=== PATIENT | male | born 1955 | race Hispanic/Latino ===

== ENCOUNTER 2021-03-20 09:00 | Observation (INO) | payer OTHER ==
[~2021-03-20] VITALS: Ht 167.6 cm; Wt 88.0 kg
[2021-03-20 11:18] LABS: BASOPHILS % (AUTO) 0.9 % (0.0-5.0); EOSINOPHILS % (AUTO) 2.9 % (0.0-8.0); HEMATOCRIT 43.3 % (42-54); LYMPHOCYTES % (AUTO) 30.1 % (21.0-51.0); MEAN CORPUSCULAR HEMOGLOBIN 29.8 pg (27.0-33.0); MEAN CORPUSCULAR HGB CONC 33.3 g/dL (32.0-36.0); MEAN CORPUSCULAR VOLUME 89.6 fL (79-99); MONOCYTES % (AUTO) 9.2 % (3.0-13.0); NEUTROPHILS % (AUTO) 56.6 % (40.0-77.0); PLATELET COUNT (AUTO) 319 K/uL (130-400); RED BLOOD CELL COUNT(AUTO) 4.83 MIL/uL (4.50-6.20); RED CELL DISTRIBUTION WIDTH 13.4 % (11.0-15.5); WHITE BLOOD COUNT (AUTO) 10.3 K/uL (4.8-10.8)
[2021-03-20 12:57] LABS: POTASSIUM 3.9 mmol/L (3.5-5.1)
[2021-03-20 13:04] LABS: CREATININE 0.9 mg/dL (0.5-1.5)
[2021-03-20 14:01] VITALS: BP 125/84
[2021-03-20] MEDS ORDERED: LOSA100T58 PO (14:32)
[2021-03-20] MEDS ORDERED: AEC81 PO (14:32)
[2021-03-20] MEDS ORDERED: AMLO-257 PO (14:32)
[2021-03-20] MEDS ORDERED: ATOR40TA71 PO (14:32)
[2021-03-20] MEDS ORDERED: OMEP20TA25 PO (14:32)
[2021-03-20] MEDS ORDERED: METF-444 PO (14:32)
[2021-03-20] MEDS ORDERED: ERGO500093 PO (14:32)
[2021-03-21] VITALS (25 sets, daily range): BP systolic 101–142; BP diastolic 58–92
[2021-03-21] MEDS ORDERED: 0.9%NACL 1000ML 1,000 ML IV ONE (06:22)
[2021-03-21] MEDS: CEFAZOLIN SODIUM 1 GM VIAL ONE ×2 (06:27→07:55)
[2021-03-21] MEDS ORDERED: SUCCINYLCHOLINE CHLORIDE 20 MG/ML 10 ML VIAL ONE (06:44)
[2021-03-21] MEDS ORDERED: LIDOCAINE PF 100MG/5ML (2%) SYRINGE 5ML ONE (06:44)
[2021-03-21] MEDS ORDERED: DEXAMETHASONE SOD PHOSPHATE 10MG/ML 1ML VIAL ONE ×2 (06:45→06:48)
[2021-03-21] MEDS ORDERED: ONDANSETRON 4MG INJ ONE ×3 (06:45→12:36)
[2021-03-21] MEDS ORDERED: NEOSTIGMINE 5MG/5ML SYR IV ONE (06:45)
[2021-03-21] MEDS ORDERED: MIDAZOLAM HCL 1 MG/ML 2ML VIAL ONE (06:45)
[2021-03-21] MEDS ORDERED: PROPOFOL 10 MG/ML 20ML VIAL IV ONE (06:45)
[2021-03-21] MEDS ORDERED: GLYCOPYRROLATE 1 MG/5 ML SYRINGE ONE (06:45)
[2021-03-21] MEDS ORDERED: FENTANYL CITRATE PF 50 MCG/1 ML 2ML VIAL ONE ×2 (06:46→09:21)
[2021-03-21] MEDS ORDERED: ROCURONIUM 10MG/1ML SYR 10 MG/ML ML ONE ×2 (06:46→08:09)
[2021-03-21] MEDS ORDERED: THROMBIN-JMI 20000 UNIT KIT TP ONE (07:07)
[2021-03-21] MEDS ORDERED: BUPIVACAINE/EPI/PF 0.25% 30ML VIAL IJ ONE (07:07)
[2021-03-21] MEDS ORDERED: CEFAZOLIN SODIUM 1 GM VIAL ONE ×2 (07:07→11:32)
[2021-03-21] MEDS ORDERED: PHENYLEPHRINE HCL 10 MG/ML 1ML VIAL IV ONE (09:01)
[2021-03-21] MEDS ORDERED: PROMETHAZINE HCL 25 MG/ML 1ML AMPULE IM PRN (12:00)
[2021-03-21] MEDS: DEXAMETHASONE SOD PHOSPHATE 4 MG/ML 1ML VIAL IVP SCH ×2 (12:00→18:38)
[2021-03-21] MEDS ORDERED: 0.9%NACL 10ML VIAL IVP PRN (12:00)
[2021-03-21] MEDS: CEFAZOLIN SODIUM 1 GM VIAL IVP SCH ×2 (12:00→20:30)
[2021-03-21] MEDS ORDERED: MEPERIDINE-PF 25 MG/ML SYG ONE ×2 (12:13→12:37)
[2021-03-21] MEDS: LACTATED RINGERS 1000ML 1,000 ML IV SCH ×3 (13:36→20:42)
[2021-03-21] MEDS: MORPHINE 2 MG SYG IVP PRN ×2 (13:43→16:50)
[2021-03-21] MEDS: HYDROCODONE/ACETAMINOPHEN 5/325 MG TAB PO PRN ×2 (15:00→20:32)
[2021-03-21] MEDS ORDERED: GLUCAGON 1MG KIT 1 MG ML IM PRN (18:30)
[2021-03-21] MEDS ORDERED: DEXTROSE 50%-WATER 50 ML DISP.SYRIN IV PRN (18:30)
[2021-03-21] MEDS: METFORMIN HCL 500 MG TABLET PO SCH (20:31)
[2021-03-21] MEDS: INSULIN HUMULIN R 100 UNIT/ML 3ML SQ SCH (20:42)
[2021-03-21] MEDS ORDERED: ATORVASTATIN 40 MG TABLET PO SCH (21:00)
[2021-03-22] VITALS: BP 137/87
[2021-03-22] MEDS: DEXAMETHASONE SOD PHOSPHATE 4 MG/ML 1ML VIAL IVP SCH ×2 (00:59→05:44)
[2021-03-22 04:00] VITALS: BP 130/78
[2021-03-22] MEDS: HYDROCODONE/ACETAMINOPHEN 5/325 MG TAB PO PRN (05:44)
[2021-03-22] MEDS: INSULIN HUMULIN R 100 UNIT/ML 3ML SQ SCH (06:13)
[2021-03-22] MEDS ORDERED: KETO10 PO (07:21)
[2021-03-22 08:05] VITALS: BP 150/74
[2021-03-22] MEDS: METFORMIN HCL 500 MG TABLET PO SCH (08:31)
[2021-03-22] MEDS ORDERED: ASPIRIN 81 MG EC TAB PO SCH (09:00)
[2021-03-22] MEDS ORDERED: PANTOPRAZOLE 40 MG TAB DR PO SCH (09:00)
[2021-03-22] MEDS ORDERED: AMLODIPINE 5 MG TAB PO SCH (09:00)
[2021-03-22] MEDS ORDERED: LOSARTAN 100 MG TABLET PO SCH (09:00)
[2021-03-28] MEDS ORDERED: ERGOCALCIFEROL (VITAMIN D2) 50,000 UNIT CAPSULE PO SCH (09:00)
== END 2021-03-22 09:40 | disposition home or self-care (01) ==
LOC: EDSTATUS 09:00 → DAHIP 03-21 05:53 → 4AH 03-21 13:05
PROVIDERS: ADMIT Neurological Surgery; ATTEND Neurological Surgery
DX: M47.22 Other spondylosis with radiculopathy, cervical region (principal); Z20.822 Contact with and (suspected) exposure to COVID-19; M48.02 Spinal stenosis, cervical region; M25.78 Osteophyte, vertebrae; I10 Essential (primary) hypertension; E11.9 Type 2 diabetes mellitus without complications; I25.10 Atherosclerotic heart disease of native coronary artery without angina pectoris; Z79.899 Other long term (current) drug therapy
CPT/HCPCS: 22551; 22552 ×2; 22845; 36415; 72020; 80048; 82948 ×4; 85025; 87635; 96374; 96375; 96376 ×2; A4215; A4221; A4222; A4223; A4344; A4600; A4649 ×2; A4663; A6010; A6260; C1776; G0378 ×22; J0330; J0690 ×4; J1100 ×6; J2001; J2175 ×2; J2250; J2370; J2405 ×3; J2704; J2710; J3010 ×2; J3490 ×2; J7030 ×2; J7120 ×2